=== PATIENT | female | born 1965 | race Caucasian/White ===

== ENCOUNTER → 2016-07-02 | Outpatient (CLI) | payer OTHER | LOC: FIMAGING 15:18 | DX: Z12.31 Encounter for screening mammogram for malignant neoplasm of breast (principal); Z80.3 Family history of malignant neoplasm of breast | CPT/HCPCS: G0202 ==

== ENCOUNTER 2017-02-01 06:32 | Day surgery (SDC) | payer OTHER ==
[2017-02-01] MEDS ORDERED: LIDOCAINE 1% 2 ML INJ ID PRN (07:18)
[2017-02-01] MEDS ORDERED: LR 1,000 ML IV ONE (07:28)
[2017-02-01] MEDS ORDERED: MIDAZOLAM 2 MG/2 ML VIAL ONE (07:38)
[2017-02-01] MEDS ORDERED: PROPOFOL/EMULSION 500 MG/50 ML BOTTLE IV ONE (07:38)
--- NOTE | 2017-02-01 07:57 | PDGENHP ---
History & Physical Chief Complaint: screening colonoscopy History of Present Illness: here for screening colonoscopy Relevant Physical Exam: GEN: NAD. Cardiac: RRR. Lungs: CTA B. Abd: Soft, nt, nd
--- NOTE | 2017-02-01 08:06 | PDANEPAE ---
ANE History of Present Illness colonoscopy ANE Past Medical History - Cardiovascular History Hx Hypertension: No Hx Arrhythmias: No Hx Chest Pain: No Hx Coronary Artery / Peripheral Vascular Disease: No Hx CHF / Valvular Disease: No Hx Palpitations: No Cardiovascular History Comment: on betablocker since her late for "fast heartbeat" - Pulmonary History Hx COPD: No Hx Asthma/Reactive Airway Disease: No Hx Recent Upper Respiratory Infection: No Hx Oxygen in Use at Home: No Hx Sleep Apnea: Yes Sleep Apnea Screening Result - Last Documented: Positive Pulmonary History Comment: SARA W/CPAP; pneumonia x2 past 17 yrs. - Neurologic History Hx Cerebrovascular Accident: No Hx Seizures: No Hx Dementia: No - Endocrine History Hx Diabetes: No - Renal History Hx Renal Disorders: No - Liver History Hx Hepatic Disorders: No - Neurological & Psychiatric Hx Hx Neurological and Psychiatric Disorders: Yes Neurological / Psychiatric History Comment: anxiety; ankylosing spondilitis back , hips, knees. Gabapentin for restless leg. - Cancer History Hx Cancer: No - Congenital Disorder History Hx Congenital Disorders: No - GI History Hx Gastrointestinal Disorders: Yes Gastrointestinal History Comment: screening colonoscopy - Other Health History Other Health History: Rx for nasal stuffiness - Chronic Pain History Chronic Pain: Yes (back,hips,knees) - Surgical History Prior Surgeries: L wrist ORIF. R thumb-excision of cyst. R bunionectomy(all 3 since ) ANE Review of Systems - Exercise capacity METS (RN): 4 METS ANE Patient History - Allergies Allergies/Adverse Reactions: hydrocodone [Hydrocodone] Allergy (Intermediate, Verified 02/01/17 07:21) GASTRIC UPSET sulfamethoxazole [From Bactrim] Allergy (Mild, Verified 07/10/14 09:05) GI upset trimethoprim [From Bactrim] Allergy (Verified 07/10/14 09:05) - Home Medications Home Medications: Disalcid 12/08/09 [Last Taken 01/28/17] NADOLOL 12/08/09 [Last Taken 02/01/17 05:30] Ambien 01/28/17 [Last Taken 01/30/17] Citalopram 01/28/17 [Last Taken 01/31/17] Desipramine HCl 01/28/17 [Last Taken 01/30/17] GABAPENTIN 01/28/17 [Last Taken 01/31/17] - NPO status NPO Since - Liquids (Date): 02/01/17 NPO Since - Liquids (Time): 04:30 NPO Since - Solids (Date): 01/31/17 NPO Since - Solids (Time): 07:00 - Smoking Hx Smoking Status: Former smoker ANE Labs/Vital Signs - Vital Signs Blood Pressure: 123/78 Heart Rate: 84 Respiratory Rate: 16 O2 Sat (%): 92 Height: 177.8 cm Weight: 131.542 kg ANE Physical Exam - Airway Mallampati Score: Class 2 Mouth exam: normal dental/mouth exam - Pulmonary Pulmonary: no respiratory distress - Cardiovascular Cardiovascular: regular rate and rhythym - ASA Status ASA Status: II ANE Anesthesia Plan Anesthesia Plan: GA with mask
[2017-02-01] MEDS ORDERED: MEPERIDINE 25 MG/ML SYR IVP PRN (08:22)
[2017-02-01] MEDS ORDERED: ALBUTEROL 3 ML DEYVIAL IH PRN (08:22)
[2017-02-01] MEDS ORDERED: NALOXONE HCL 0.4 MG/ML INJ IVP PRN (08:22)
[2017-02-01] MEDS ORDERED: LR 500 ML IV PRN (08:22)
[2017-02-01] MEDS ORDERED: ONDANSETRON 4 MG/2 ML VIAL IVP PRN (08:22)
[2017-02-01] MEDS ORDERED: fentaNYL 100 MCG/2 ML INJ IVP PRN (08:22)
--- NOTE | 2017-02-01 08:43 | POSTOPPROG ---
Post Op Note Date of Operation: 02/01/17 Surgeon: Alex Mendoza Pre-op Diagnosis: screening Post-op Diagnosis: normal colonoscopy Indication: screening colonoscopy Procedure: colonoscopy Findings: normal colonoscopy Inf/Abcess present in the surg proc area at time of surgery?: No
--- NOTE | 2017-02-01 08:46 | POSTANESTH ---
Post Anesthetic Evaluation Cardiovascular Status: Normal, Stable Respiratory Status: Normal, Stable Level of Consciousness/Mental Status: Can Participate in Eval Pain Control: Adequate, Prn Tx Ordered Nausea/Vomiting Control: Adequate, Prn Tx Ordered Complications Possibly Related to Anesthesia: None Noted
--- NOTE | 2017-02-01 09:02 | GPN ---
[f rep st] PROCEDURE NOTE PREPROCEDURE DIAGNOSIS: Screening colonoscopy. POSTPROCEDURE DIAGNOSIS: Normal colonoscopy. PROCEDURE: Colonoscopy. MEDICATIONS: Monitored anesthesia care. BLOOD LOSS: None. BIOPSIES: None. INDICATIONS: The patient is a 51-year-old female here for screening colonoscopy. The risks and pablo efits of the procedure were discussed with the patient. Consent obtained. Risks include, but not l imited to, bleeding, perforation, and slight sedation. The patient is ASA class 2. DESCRIPTION OF PROCEDURE: The adult colonoscope was advanced into the terminal ileum, which appeare d normal. The ileocecal valve, cecum ascending colon, hepatic flexure, transverse colon, splenic fl exure, descending colon, sigmoid colon, and rectum were all normal. Retroflexed views in the rectum were normal. IMPRESSION: Normal screening colonoscopy. RECOMMENDATIONS: 1. Advance diet as tolerated. 2. Discharge home with escort. 3. Continue current medications. 4. Repeat colonoscopy in 10 years for screening purposes. Thank you for allowing me to participate in the care of your patient. Please do not hesitate to yamileth guido with questions. /[id number]/MODL
[2017-02-01 09:19] VITALS: TEMP 97.5
[2017-02-01 09:56] VITALS: PULSE 65; RESP 16
[2017-02-01 10:58] VITALS: BP 119/77; O2SAT 92
== END 2017-02-01 11:14 | disposition home or self-care (01) ==
LOC: FSGY 06:32
PROVIDERS: ATTEND Internal Medicine Gastroenterology
PROC: 0DJD8ZZ Inspection of Lower Intestinal Tract, Via Natural or Artificial Opening Endoscopic (ICD-10-PCS; principal; 2017-02-01 08:00)
DX: Z12.11 Encounter for screening for malignant neoplasm of colon (principal)
CPT/HCPCS: J2250; J2704